=== PATIENT | female | born 1985 ===

== ENCOUNTER 2025-02-19 05:48 | Emergency (ER) | payer MEDICAID, OTHER ==
[~2025-02-19] VITALS: Ht 167.6 cm; Wt 65.9 kg
[2025-02-19] MEDS ORDERED: CHL12OR MT (07:42)
[2025-02-19] MEDS ORDERED: NAPR-957 PO (07:42)
[2025-02-19] MEDS ORDERED: ACET500T58 PO (07:42)
--- NOTE | 2025-02-19 07:43 | ED.PDOC ---
History of Present Illness HPI Comments 39 year old female presents to the ED for the c/c of Right sided tongue swelling. Pt states that she bit her Tongue at 11pm last night and has since had localized pain that is rated as moderate. No therapies tried. Swelling is visible, puncture wound is noted. No other associated symptoms or modifiers at this time. Chief Complaint: Face pain Time Seen by MD: 07:37 Reviewed Notes: Nurses Notes, Medications, Allergies Allergies: Coded Allergies: Ibuprofen (Verified Allergy, Unknown, 02/19/25) Home Meds Active Scripts Chlorhexidine Gluconate (Mouth (CHLORHEXIDINE ORAL RINSE) 473 Ml So, 15 ML MT Q12HR for 7 Days, #200 ML 0 Refills Prov:MARY GRIFFITHS NP 02/19/25 Naproxen (Naproxen) 375 Mg Tab, 1 TAB PO BID for 10 Days, #20 TAB 0 Refills Prov:MARY GRIFFITHS NP 02/19/25 Acetaminophen (Acetaminophen) 500 Mg Tab, 500 MG PO Q6HP PRN for 10 Days, #40 TAB 0 Refills Prov:MARY GRIFFITHS NP 02/19/25 Information Source: Patient Mode of Arrival: Ambulatory Severity: Mild Timing: Hours Duration: Since onset, Hours Prehospital treatment: None Past Medical History PAST MEDICAL HISTORY: Denies Surgical History: Family History Family History: Unknown Social History Smoker: Non-Smoker Alcohol: Denies ETOH Use Drugs: Denies Drug Use Lives In: Home Constitutional: denies: chills, diaphoresis, fatigue, fever, malaise, sweats, weakness, others EENTM: reports: mouth pain; denies: blurred vision, double vision, ear bleeding, ear discharge, ear drainage, ear pain, ear ringing, eye pain, eye redness, hearing loss, mouth swelling, nasal discharge, nose bleeding, nose congestion, nose pain, photophobia, tearing, throat pain, throat swelling, voice changes, others Respiratory: denies: cough, hemoptysis, orthopnea, SOB at rest, shortness of breath, SOB with excertion, stridor, wheezing, others Cardiovascular: denies: chest pain, dizzy spells, diaphoresis, Dyspnea on exertion, edema, irregular heart beat, left arm pain, lightheadedness, palpitations, PND, syncope, others Gastrointestinal: denies: abdomen distended, abdominal pain, blood streaked bowels, constipated, diarrhea, dysphagia, difficulty swallowing, hematemesis, melena, nausea, poor appetite, poor fluid intake, rectal bleeding, rectal pain, vomiting, others Genitourinary: denies: abnormal vagina bleeding, burning, dyspareunia, dysuria, flank pain, frequency, hematuria, incontinence, pain, , vagina discharge, urgency, others Neurological: denies: dizziness, fainting, headache, left sided numbness, left sided weakness, numbness, paresthesia, pre-existing deficit, right sided numbness, right sided weakness, seizure, speech problems, tingling, tremors, weakness, others Musculoskeletal: denies: back pain, gout, joint pain, joint swelling, muscle pain, muscle stiffness, neck pain, others Integumetry: denies: bruises, change in color, change in hair/nails, dryness, laceration, lesions, lumps, rash, wounds, others Allergic/Immunocompromised: denies: Difficulty Healing, Frequent Infections, Hives, Itching, others Hematologic/Lymphatic: denies: anemia, blood clots, easy bleeding, easy bruising, swollen glands, others Endocrine: denies: excessive hunger, excessive sweating, excessive thirst, excessive urination, flushing, intolerance to cold, intolerance to heat, une xplained weight gain, unexplained weight loss, others Psychiatric: denies: anxiety, bipolar disorder, depression, hopeless, panic disorder, schizophrenia, sleepless, suicidal, others All Other Systems: Reviewed and Negative Physical Exam General Appearance: Mild Distress, Normal HEENT: Normal ENT Inspection, Pharynx Normal, TMs Normal, Other (1x1 round cm puncture wound to the lateral boarder of right side of tounge, no ative bleeding, air ways intact) Neck: Full Range of Motion, Non-Tender, Normal, Normal Inspection Respiratory: Chest Non-Tender, Lungs Clear, No Accessory Muscle Use, No Respiratory Distress, Normal Breath Sounds Cardiovascular: No JVD, No Murmur, Regular Rate/Rhythm Breast Exam: Deferred Gastrointestinal: Non Tender, No Pulsatile Mass, Normal Bowel Sounds, Soft Genitalia: Deferred Pelvic: Deferred Rectal: Deferred Extremities: No calf tenderness, Normal capillary refill, Normal inspection, Normal range of motion, Non-tender, No pedal edema Musculoskeletal : Apperance: Normal Neurologic: Alert, No Motor Deficits, Normal Affect, Normal Mood, No Sensory Deficits Cerebellar Function: Normal Reflexes: Normal Skin: Dry, Normal Color, Warm Lymphatic: No Adenopathy Was a procedure done? Was a procedure done?: No Differential Dx Considerations may include: puncture wound, through and through laceration X-Ray, Labs, Meds, VS Vital Signs Date Time Temp Pulse Resp B/P (MAP) Pulse Ox O2 Delivery O2 Flow Rate FiO2 02/19/25 08:12 98.7 66 16 132/73 (92) 99 98.7 02/19/25 08:12 66 16 99 Room Air 02/19/25 07:41 97.9 79 18 154/93 (113) 100 97.9 02/19/25 06:05 98.6 80 18 131/102 (112) 97 98.6 X-Ray, Labs, Meds, VS Comment 39 year old female presents to the ED for the c/c of Right sided tongue swelling. Patient arrives alert and oriented, ABC's intact, afebrile, vital signs stable, saturating well in room air After ROS physical examination there were no red flags. Findings are consistent with a puncture wound to the lateral aspect of the tongue. No indication for suturing at this time. Patient is stable for discharge at this time. Take medications as prescribed. External notes reviewed. Test results and diagnostic imaging interpreted. All diagnostic findings, discharge care, education and instructions provided Follow-up with PCP in 2 to 3 days Patient verbalized understanding and agreed to treatment plan Vital signs stable, afebrile, no acute distress noted Patient ambulatory with strong steady gait Advised to return precautions for any new or worsening symptoms, return to ER immediately for re-evaluation Patient is aware that the purpose of this visit was for an acute medical emergency requiring emergent stabilization. Chronic conditions, including malignancies have not been ruled out. Patient is instructed to follow up with PCP as directed and discharge instructions for continued care and workup. If unable to arrange follow-up, patient is to return to the emergency department for reassessment. Patient (parent or legal guardian if applicable) was given verbal and written discharge instructions and acknowledges understanding. Additional MDM Review of External, Non-ED records: External records reviewed. Discussion with independent historian (EMS, family) history obtained from the patient/parents (if applicable) at bedside Chronic conditions affecting care: None Social determinants of health affecting care: None Consideration of admission (observation or admission): I considered escalation of care to admission for this patient, however given the reassuring workup, the patient is safe for outpatient management. Discussion with the Radiology: No Tests considered but not performed: Prescription medication considered but not given: Time of 1ST Reevaluation: 08:07 Reevaluation 1ST: Improved Patient Education/Counseling: Diagnosis, Treatment Family Education/Counseling: Diagnosis, Treatment SEPSIS Sepsis Screen Date sepsis recognized/suspect: Feb 19, 2025 Time Sepsis recognized/suspect: 604 Recent Procedure: No On Antibiotic Therapy: No Respiratory Rate >20: No Heart Rate >90: No Temp<36 C (96.8 F) or >38.3 C: No SBP <90 or MAP <65 mmHG: No New Acute Mental Status Change: No Is the patient on CPAP, BIPAP,: No Vital Signs Date Time Temp Pulse Resp B/P (MAP) Pulse Ox O2 Delivery O2 Flow Rate FiO2 02/19/25 08:12 98.7 66 16 132/73 (92) 99 98.7 02/19/25 08:12 66 16 99 Room Air 02/19/25 07:41 97.9 79 18 154/93 (113) 100 97.9 02/19/25 06:05 98.6 80 18 131/102 (112) 97 98.6 Departure 1 Departure Time of Disposition: 07:46 Impression: Primary Impression: Bite wound of own tongue Disposition: HOME / SELF CARE / HOMELESS Condition: Stable e-Prescriptions Chlorhexidine Gluconate (Mouth (CHLORHEXIDINE ORAL RINSE) 473 Ml So 15 ML MT Q12HR for 7 Days, #200 ML 0 Refills Prov: MARY GRIFFITHS [employer] 02/19/25 Naproxen (Naproxen) 375 Mg Tab 1 TAB PO BID for 10 Days, #20 TAB 0 Refills Prov: MARY GRIFFITHS [employer] 02/19/25 Acetaminophen (Acetaminophen) 500 Mg Tab 500 MG PO Q6HP PRN for 10 Days, #40 TAB 0 Refills Prov: MARY GRIFFITHS NP 02/19/25 Discharged With: Self Critical Care Note Critical Care Time?: No Stability Stability form required: No Heart Score Heart Score: Heart Score Response (Comments) Value History N/A 0 EKG N/A 0 Age N/A 0 Risk Factors N/A 0 Troponin N/A 0 Total 0 I personally scribed for MARY GRIFFITHS NP ([email or web address]) on 02/19/25 at 07:43. Electronically submitted by Clarence Jalloh ([email or web address]). MARY GRIFFITHS NP Feb 19, 2025 07:43
[2025-02-19] MEDS: KETOROLAC TROMETH 30 MG/ML 1ML VIAL IM ONE (08:08)
[2025-02-19 08:12] VITALS: BP 132/73; PULSE 66; RESP 16; TEMP 98.7; O2SAT 99
== END 2025-02-19 08:16 | disposition home or self-care (01) ==
LOC: ER 05:48
DX: S01.532A Puncture wound without foreign body of oral cavity, initial encounter (principal); Z98.890 Other specified postprocedural states; Z88.6 Allergy status to analgesic agent; Z79.899 Other long term (current) drug therapy; X58.XXXA Exposure to other specified factors, initial encounter; Y93.9 Activity, unspecified; Y92.89 Other specified places as the place of occurrence of the external cause; Y99.8 Other external cause status
CPT/HCPCS: 96372; 99284; J1100; J1885